=== PATIENT | female | born 1980 ===

== ENCOUNTER 2016-10-21 09:41 | Observation (INO) | payer OTHER ==
[2016-10-21 10:01] VITALS: BMI 30.8
--- NOTE | 2016-10-21 10:21 | ED PDOC ---
HPI: Chest Pain Time Seen by Provider: 10/21/16 10:00 Chief Complaint (Provider): Chest pressure History Per: Patient Onset/Duration Of Symptoms: Days (x2-3), Waxing/Waning Current Symptoms Are (Timing): Still Present Additional Complaint(s): 36 y/o female presents to the emergency department with a complaint of a continuously chest pressure but waxing and waning x2-3 days. Associated with a cough (not new). Reports she is under a lot of stress at work and noticed pressure on chest acutely worsened after having a conversation with supervisor extrusion yesterday around 17:00. States she did not take any medications for the relief of symptoms. Patient has a history of asthma but does not believe symptoms are related to asthma. Denies shortness of breath, history of diabetes or hypertension, and radiation of discomfort to the jaw or arm. Of note, Patient has not seen PMD: Dr. Lebron in a few years due to insurance complications. Past Medical History Reviewed: Historical Data, Nursing Documentation, Vital Signs - Medical History PMH: Hypercholesterolemia (Has been told mildly high in the past) Denies: Diabetes, HTN - Family History Family History: States: PR (Father at the age of 59) - Allergies Allergies/Adverse Reactions: Allergies Allergy/AdvReac Type Severity Reaction Status Date / Time Penicillins Allergy RASH Verified 10/21/16 10:02 Review of Systems ROS Statement: Except As Marked, All Systems Reviewed And Found Negative Cardiovascular: Positive for: Other (Chest pressure) Respiratory: Positive for: Cough ((Not new)). Negative for: Shortness of Breath , Other (Denies radiation of discomfort to jaw or arm) Physical Exam - Reviewed Nursing Documentation Reviewed: Yes Vital Signs Reviewed: Yes - Physical Exam Appears: Positive for: Non-toxic, No Acute Distress Head Exam: Positive for: ATRAUMATIC, NORMAL INSPECTION, NORMOCEPHALIC Skin: Positive for: Normal Color, Warm, Dry Neck: Positive for: Normal, Supple Cardiovascular/Chest: Positive for: Regular Rate, Rhythm, Other (Mild reproducible chest pain ). Negative for: Chest Non Tender, Murmur Respiratory: Positive for: Normal Breath Sounds (Clear). Negative for: Accessory Muscle Use, Respiratory Distress Neurologic/Psych: Positive for: Alert, Oriented (x3), Mood/Affect (Appears mildly anxious) - Laboratory Results Result Diagrams: 10/21/16 10:52 10/21/16 10:52 - ECG ECG Rhythm: Positive for: Normal QRS, Normal ST Segment, Sinus Rhythm (86 bpm), Nonspecific Changes. Negative for: ST/T Changes Medical Decision Making Medical Decision Making: Time: 10:10 Initial impression: Chest pressure Initial plan: --EKG --BMP --Troponin I --Urine Preg --CBC w/. diff --D Dimer (COAG) --Chest x-ray --Aspirin 324 mg PO --Ativan 0.5 mg IV --Reevaluation Time: 11:29 --Chest x-ray FINDINGS: LUNGS: No focal consolidation. There is a vague somewhat elliptical shaped density left upper lung field which overlies left anterior 2nd rib. This could represent a tiny cluster of of calcifications or calcified granuloma. Followup nonemergent CT scan of the chest recommended for further evaluation. PLEURA: No significant pleural effusion identified. No pneumothorax apparent. CARDIOVASCULAR: Heart size normal OSSEOUS STRUCTURES: No significant abnormalities. VISUALIZED UPPER ABDOMEN: Normal. OTHER FINDINGS: None. IMPRESSION: No acute infiltrates. Vague elliptical shaped density left upper lung field could represent calcified granuloma or tiny cluster of calcifications. Followup nonemergent CT scan chest recommended for further evaluation. Time: 11:40 --Angio Chest PE CT Time: 12:84 -- Angio Chest CT FINDINGS: PULMONARY ARTERIES: There are no filling defects in the pulmonary arteries to suggest acute pulmonary embolic. AORTA: The aorta is normal in caliber. No aortic dissection. LUNGS: The lungs are clear. There is dependent atelectasis in the posterior lungs. No nodule, mass or pulmonary consolidation. PLEURAL SPACES: No effusion or pneumothorax. HEART: The heart is normal in size. No pericardial effusion. LYMPH NODES: No pathologic lymphadenopathy. BONES, CHEST WALL: No fracture or destructive lesion within normal limits for the patient's age. OTHER FINDINGS: There is diffuse low-attenuation in the liver. There is mild splenomegaly. The adrenal glands are normal in size the IMPRESSION: 1. No CTA evidence for acute pulmonary embolism. 2. No aortic aneurysm or dissection. 3. No focal consolidation, pleural effusion or pneumothorax. 4. Fatty infiltration in the liver and mild splenomegaly. Time: 13:15 --Troponin I -- Admit to hospital routine: on ED Obs for chest pain Any further documentation will be included within ED Obs Section of chart. Sean Galindoation: Documented by Megha Khanna, acting as a scribe for Dedra Tenorio PA-C. Provider Scribe Attestation: All medical record entries made by the Scribe were at my direction and personally dictated by me. I have reviewed the chart and agree that the record accurately reflects my personal performance of the history, physical exam, medical decision making, and the department course for this patient. I have also personally directed, reviewed, and agree with the discharge instructions and disposition. ED OBSERVATION Date of observation admission: 10/21/16 Time of observation admission: 13:16 - Observation admission statement Patient is being placed in observation because:: chest pain - Goals of Observation Goals of observation are:: observe for improvement of chest pain. - Progress Note Progress Note: 10/21/16 13:17 CXR: ? calcification REJI. ativan 0.5mg iv x 1 dose d-dimer elevated CTA chest: wnl ASA 324 mg x 1 dose Patient feels moderately improved. d/w DR. Saavedra. will repeat troponin in 3 hours and re-evaluate. 10/21/16 14:45 --Patient resting comfortably. rEPEAT EKG: NO CHANGE NOTED. REPEAT TROPONIN: NEGATIVE PATIENT COMFORTABLE IN ED. 10/21/16 15:45 Disposition - Clinical Impression Clinical Impression: Chest pain - Patient ED Disposition Is Patient to be Admitted: No - Disposition Disposition: Routine/Home Disposition Time: 15:39 Condition: FAIR
[2016-10-21 11:12] LABS: BASO # 0.1 K/uL (0.0-0.2); EOS # 0.2 K/uL (0.0-0.7); EOS % 2.6 % (0.0-4.0); HEMATOCRIT 39.9 % (34.0-47.0); LYMPH # 2.6 K/uL (1.0-4.3); LYMPH % 40.8 % (20.0-40.0); MEAN CELL VOLUME 86.9 fl (81.0-99.0); MEAN CORPUSCULAR HEMOGLOBIN 29.8 pg (27.0-31.0); MEAN CORPUSCULAR HGB CONC 34.3 g/dL (33.0-37.0); MEAN PLATELET VOLUME 8.8 fl (7.2-11.7); MONO # 0.5 K/uL (0.0-0.8); MONO % 8.3 % (0.0-10.0); NEUT % 47.3 % (50.0-75.0); NRBC % 0.1 % (0.0-0.0); RED CELL DISTRIBUTION WIDTH 12.6 % (11.5-14.5); WHITE BLOOD COUNT 6.3 K/uL (4.8-10.8)
[2016-10-21 11:27] LABS: BLOOD UREA NITROGEN 11 mg/dl (7-17); CARBON DIOXIDE 25 mmol/L (22-30); CHLORIDE 106 mmol/L (98-107); GFR AFRICAN-AMERICAN > 60; GLUCOSE,RANDOM 101 mg/dL (65-105); POTASSIUM 3.7 MMOL/L (3.6-5.0); SODIUM 141 mmol/l (132-148)
--- NOTE | 2016-10-21 11:31 | RAD ---
HISTORY: chest pain COMPARISON: No prior. TECHNIQUE: Two-view chest. FINDINGS: LUNGS: No focal consolidation. There is a vague somewhat elliptical shaped density left upper lung field which overlies left anterior 2nd rib. This could represent a tiny cluster of of calcifications or calcified granuloma. Followup nonemergent CT scan of the chest recommended for further evaluation. PLEURA: No significant pleural effusion identified. No pneumothorax apparent. CARDIOVASCULAR: Heart size normal OSSEOUS STRUCTURES: No significant abnormalities. VISUALIZED UPPER ABDOMEN: Normal. OTHER FINDINGS: None. IMPRESSION: No acute infiltrates. Vague elliptical shaped density left upper lung field could represent calcified granuloma or tiny cluster of calcifications. Followup nonemergent CT scan chest recommended for further evaluation.
[2016-10-21] MEDS ORDERED: Iodixanol 320 MG/ML 100 ML BOTTLE IV ONE (11:47)
[2016-10-21] MEDS ORDERED: Sodium Chloride 0.9% 50 ML IV ONE (11:47)
--- NOTE | 2016-10-21 12:50 | CT ---
PROCEDURE: CT Chest with contrast (Pulmonary Angiogram) HISTORY: Chest pain; elevated d dimer COMPARISON: Plain radiographs performed the same day TECHNIQUE: Axial computed tomography images were obtained of the chest in the pulmonary arterial phase of enhancement. Coronal and sagittal reformatted images were created and reviewed. Intravenous contrast dose: 95 mL Visipaque 320 Radiation dose: Total exam DLP = 340.33 mGy-cm. This CT exam was performed using one or more of the following dose reduction techniques: Automated exposure control, adjustment of the mA and/or kV according to patient size, and/or use of iterative reconstruction technique. FINDINGS: PULMONARY ARTERIES: There are no filling defects in the pulmonary arteries to suggest acute pulmonary embolic. AORTA: The aorta is normal in caliber. No aortic dissection. LUNGS: The lungs are clear. There is dependent atelectasis in the posterior lungs. No nodule, mass or pulmonary consolidation. PLEURAL SPACES: No effusion or pneumothorax. HEART: The heart is normal in size. No pericardial effusion. LYMPH NODES: No pathologic lymphadenopathy. BONES, CHEST WALL: No fracture or destructive lesion within normal limits for the patient's age. OTHER FINDINGS: There is diffuse low-attenuation in the liver. There is mild splenomegaly. The adrenal glands are normal in size the IMPRESSION: 1. No CTA evidence for acute pulmonary embolism. 2. No aortic aneurysm or dissection. 3. No focal consolidation, pleural effusion or pneumothorax. 4. Fatty infiltration in the liver and mild splenomegaly.
--- NOTE | 2016-10-21 23:51 | CARD ---
APPROVED REPORT EKG Measurement Heart [id number] <Conclusion> Normal sinus rhythm Normal ECG
== END 2016-10-21 16:00 | disposition home or self-care (01) ==
LOC: H.ER 09:41 → H.EROBSV 13:15
PROVIDERS: ADMIT Emergency Medicine; ATTEND Emergency Medicine
DX: R07.89 Other chest pain (principal); E78.00 Pure hypercholesterolemia, unspecified; J45.909 Unspecified asthma, uncomplicated; K76.0 Fatty (change of) liver, not elsewhere classified; R16.1 Splenomegaly, not elsewhere classified
CPT/HCPCS: 71020; 71275; 80048; 81025; 84484; 85025; 85378; 93005; 96374; 99282; G0378; J2060; Q9967